=== PATIENT | female | born 2000 ===

== ENCOUNTER 2021-02-28 19:59 | Inpatient (IN) ==
[2021-02-28] MEDS ORDERED: LACTATED RINGERS 500 ML IV PRN (20:51)
[2021-02-28] MEDS ORDERED: ONDANSETRON 4 MG/2 ML VIAL IV PRN (20:51)
[2021-02-28] MEDS ORDERED: BUTORPHANOL 2 MG/ML VIAL IV PRN (21:03)
[2021-02-28 21:20] LABS: Basophils % 0.2 % (0.0-0.8); Eosinophils % 0.4 % (0.00-10.9); Hematocrit 35.2 VOL% (35.7-47.0); Hemoglobin 12.1 GM/DL (12.0-16.0); Immature Granulocytes % 1.3 %; Immature Granulocytes Absolute 0.13 #; Lymphocytes # 1.4 10*3/uL (1.4-4.0); Lymphocytes % 13.9 % (21.3-54.2); Mean Corpuscular HGB Conc 34.4 GM/DL (32-36); Mean Corpuscular Volume 86.9 FL (87-102); Mean Platelet Volume 13.5 FL (9.6-12.0); Monocytes % 6.5 % (1.7-12.7); Neutrophils % 77.7 % (38.7-73.9); Platelet Count 161 T/CUMM (130-400); Red Blood Count 4.05 MC/CUMM (3.8-5.5); Red Cell Distribution Width 14.3 % (9.3-17.3); White Blood Count 9.9 T/CUMM (4-12)
[2021-02-28] MEDS ORDERED: FAMOTIDINE 20 MG/2 ML VIAL IV ONE (21:22)
[2021-02-28] MEDS ORDERED: ePHEDrine 50 MG/ML VIAL IV PRN (21:22)
[2021-02-28] MEDS ORDERED: CITRIC ACID/SODIUM CITRATE 30 ML UDCUP PO ONE (21:22)
[2021-02-28] MEDS ORDERED: hydrOXYzine HCL 25 MG/1 ML VIAL IM PRN (21:22)
[2021-02-28] MEDS ORDERED: NALOXONE 0.4 MG/ML VIAL IV PRN (21:22)
[2021-02-28] MEDS ORDERED: PROMETHAZINE 25 MG/1 ML VIAL IM PRN (21:22)
[2021-02-28] MEDS ORDERED: LACTATED RINGERS 1,000 ML IV ONE (21:22)
[2021-02-28] MEDS ORDERED: diphenhydrAMINE 50 MG/1 ML VIAL IV PRN (21:22)
[2021-02-28 21:34] LABS: Albumin 2.5 G/DL (3.4-5.0); Bilirubin,Total 0.5 MG/DL (0.20-1.00); Calcium 8.7 MG/DL (8.5-10.1); Osmolality,Calculated 279.1 MOS/KG (273-304); Potassium 3.3 MMOL/L (3.5-5.1); Total Protein 6.3 G/DL (6.4-8.2); Uric Acid 4.1 MG/DL (2.6-6.0)
[2021-02-28] MEDS ORDERED: AMPICILLIN INJ 2,000 MG in SODIUM CHLORIDE 0.9% 100 ML IV ONE (21:45)
[2021-02-28 22:22] LABS: INR 0.9; Partial Thromboplastin Time 28.8 SECS (23.9-33.8)
[2021-02-28] MEDS: LACTATED RINGERS 1,000 ML IV PRN (22:47)
[2021-02-28] MEDS: fentaNYL 2 MCG/ROPIV 0.2% EPID 100 ML EPIDURAL SCH (23:22)
[2021-03-01 01:04] LABS: Bilirubin,Urine Negative (Negative); Blood, Urine Negative (Negative); Glucose,Urine (UA) Negative (Negative); Ketones,Urine Negative (Negative); Mucus,Urine Occasional /LPF (Occasional); Nitrite,Urine Negative (Negative); Protein,Urine Negative; RBC,Urine 1 /HPF (0-4); Squamous Epithelial Cell,Urine Occasional /HPF (0-10); Urine Appearance CLEAR (Clear); Urine Color Straw (Yellow); Urine Specific Gravity 1.006 (1.001-1.035); Urine Urobilinogen < 2.0 EU/DL (0.2-1.0)
[2021-03-01] MEDS: AMPICILLIN INJ 1,000 MG in SODIUM CHLORIDE 0.9% 100 ML IV SCH ×3 (01:56→10:47)
[2021-03-01] MEDS: fentaNYL 2 MCG/ROPIV 0.2% EPID 100 ML EPIDURAL SCH (07:26)
[2021-03-01] MEDS: LACTATED RINGERS 1,000 ML IV PRN (07:29)
[2021-03-01] MEDS ORDERED: miSOPROStoL 200 MCG TABLET ONE (08:26)
[2021-03-01] MEDS ORDERED: TRANEXAMIC ACID 1,000 MG/10 ML VIAL ONE (08:26)
[2021-03-01] MEDS ORDERED: OXYTOCIN/LR 20 UNIT/1,000 ML BAG IV ONE ×2 (08:26→14:34)
[2021-03-01] MEDS ORDERED: METHYLERGONOVINE 0.2 MG/1 ML AMP ONE (08:27)
[2021-03-01] MEDS ORDERED: CARBOPROST TROMETHAMINE 250 MCG/ML AMP IM ONE (08:27)
[2021-03-01] MEDS ORDERED: SODIUM CHLORIDE 0.9% 0 ML IV ONE (08:28)
[2021-03-01] MEDS: OXYTOCIN/LR 20 UNIT/1,000 ML BAG IV SCH ×2 (09:15→13:05)
[2021-03-01 12:07] LABS: Cord Venous Blood HCO3 20.2 MMOL/L; Cord Venous Blood PCO2 38.4 MMHG; Cord Venous Blood PO2 41.1
[2021-03-01] MEDS ORDERED: HYDROCORTISONE 2.5% RECTAL CREAM 30 GM TUBE TOP PRN (14:34)
[2021-03-01] MEDS ORDERED: oxyCODONE/ACETAMINOPHEN 5-325 MG TABLET PO PRN (14:34)
[2021-03-01] MEDS ORDERED: ACETAMINOPHEN 325 MG TABLET PO PRN (14:34)
[2021-03-01] MEDS ORDERED: WITCH HAZEL PADS 100/JAR TOP PRN (14:34)
[2021-03-01] MEDS ORDERED: BISACODYL 10 MG SUPP RECTAL PRN (14:34)
[2021-03-01] MEDS ORDERED: LANOLIN 50% CREAM 0.3 OZ TUBE TOP PRN (14:34)
[2021-03-01] MEDS ORDERED: BENZOCAINE 20%/MENTHOL 0.5% SPRAY 56 GM CAN TOP PRN (14:34)
[2021-03-01] MEDS ORDERED: DIPH/TET/ACEL PERT BOOSTER VACCINE 0.5 ML VIAL IM ONE (14:34)
[2021-03-01] MEDS ORDERED: RHO(D) IMMUNE GLOBULIN 300 MCG SYRINGE IM ONE (14:34)
[2021-03-01] MEDS ORDERED: MEASLES/MUMPS/RUBELLA VACCINE 0.5 ML VIAL SUBCUT ONE (14:34)
[2021-03-01] MEDS: oxyCODONE/ACETAMINOPHEN 5-325 MG TABLET PO PRN ×2 (14:43→21:34)
[2021-03-01] MEDS: DOCUSATE SODIUM 100 MG CAPSULE PO SCH (21:35)
[2021-03-01] MEDS: IBUPROFEN 800 MG TABLET PO PRN (23:35)
[2021-03-02] MEDS ORDERED: POTASSIUM CHLORIDE 20 MEQ TABLET PO ONE (00:20)
[2021-03-02 05:30] LABS: Basophils % 0.2 % (0.0-0.8); Eosinophils # 0.1 10*3/uL (0.0-0.87); Eosinophils % 0.8 % (0.00-10.9); Hematocrit 28.5 VOL% (35.7-47.0); Immature Granulocytes % 0.8 %; Immature Granulocytes Absolute 0.11 #; Lymphocytes # 1.7 10*3/uL (1.4-4.0); Lymphocytes % 12.8 % (21.3-54.2); Mean Corpuscular HGB Conc 33.3 GM/DL (32-36); Mean Corpuscular Volume 89.3 FL (87-102); Mean Platelet Volume 12.9 FL (9.6-12.0); Monocytes % 5.2 % (1.7-12.7); Neutrophils % 80.2 % (38.7-73.9); Red Cell Distribution Width 14.4 % (9.3-17.3)
[2021-03-02 05:31] LABS: Hemoglobin 9.5 GM/DL (12.0-16.0); Red Blood Count 3.19 MC/CUMM (3.8-5.5); White Blood Count 13.3 T/CUMM (4-12)
[2021-03-02 05:32] LABS: Platelet Count 123 T/CUMM (130-400)
[2021-03-02 05:55] LABS: Microcytosis 1+; Platelet Estimate Adequate
[2021-03-02] MEDS: DOCUSATE SODIUM 100 MG CAPSULE PO SCH ×2 (09:24→21:25)
[2021-03-02] MEDS: FERROUS SULFATE 325 MG TABLET PO SCH ×2 (09:24→21:25)
[2021-03-02] MEDS: oxyCODONE/ACETAMINOPHEN 5-325 MG TABLET PO PRN (12:03)
[2021-03-02] MEDS: POTASSIUM CHLORIDE 20 MEQ TABLET PO PRN ×3 (17:33→19:45)
[2021-03-03] MEDS: oxyCODONE/ACETAMINOPHEN 5-325 MG TABLET PO PRN (02:10)
[2021-03-03 08:02] VITALS: BP 144/81
[2021-03-03] MEDS: FERROUS SULFATE 325 MG TABLET PO SCH (09:14)
[2021-03-03] MEDS: DOCUSATE SODIUM 100 MG CAPSULE PO SCH (09:14)
[2021-03-03] MEDS: IBUPROFEN 800 MG TABLET PO PRN (09:16)
== END 2021-03-03 13:20 | disposition home or self-care (01) | DRG 560 ==
LOC: N.LDOUT 19:59 → N.LD 20:01 → N.OB 03-01 14:25
PROVIDERS: ADMIT Obstetrics & Gynecology; ATTEND Obstetrics & Gynecology

== ENCOUNTER 2022-06-22 18:12 | Inpatient (IN) ==
[2022-06-22] MEDS ORDERED: OXYTOCIN/LR 20 UNIT/1,000 ML BAG IV ONE (19:15)
[2022-06-22] MEDS ORDERED: METHYLERGONOVINE 0.2 MG/1 ML AMP IM PRN (19:15)
[2022-06-22] MEDS ORDERED: miSOPROStoL 200 MCG TABLET RECTAL PRN (19:15)
[2022-06-22] MEDS ORDERED: TRANEXAMIC ACID 1,000 MG in SODIUM CHLORIDE 0.9% 100 ML IV PRN (19:15)
[2022-06-22] MEDS ORDERED: CARBOPROST TROMETHAMINE 250 MCG/ML AMP IM PRN (19:15)
[2022-06-22] MEDS ORDERED: ACETAMINOPHEN 325 MG TABLET PO PRN (19:26)
[2022-06-22] MEDS ORDERED: miSOPROStoL 200 MCG TABLET VAG PRN (19:26)
[2022-06-22] MEDS ORDERED: MEPERIDINE 50 MG/1 ML VIAL IV PRN (19:26)
[2022-06-22] MEDS ORDERED: LACTATED RINGERS 1,000 ML IV SCH ×3 (19:30→22:00)
[2022-06-22 19:49] LABS: Basophils % 0.3 % (0.0-0.8); Eosinophils # 0.1 10*3/uL (0.0-0.87); Eosinophils % 0.7 % (0.00-10.9); Hematocrit 36.2 VOL% (35.7-47.0); Hemoglobin 12.7 GM/DL (12.0-16.0); Immature Granulocytes Absolute 0.11 #; Lymphocytes # 2.1 10*3/uL (1.4-4.0); Lymphocytes % 19.4 % (21.3-54.2); Mean Corpuscular HGB Conc 35.1 GM/DL (32-36); Mean Corpuscular Volume 88.5 FL (87-102); Mean Platelet Volume 12.9 FL (9.6-12.0); Monocytes # 0.7 10*3/uL (0.11-0.8); Monocytes % 6.2 % (1.7-12.7); Neutrophils % 72.4 % (38.7-73.9); Platelet Count 157 T/CUMM (130-400); Red Blood Count 4.09 MC/CUMM (3.8-5.5); Red Cell Distribution Width 13.2 % (9.3-17.3); White Blood Count 10.7 T/CUMM (4-12)
[2022-06-22] MEDS: ONDANSETRON 4 MG/2 ML VIAL IV PRN (19:59)
[2022-06-22] MEDS ORDERED: MEPERIDINE 25 MG/1 ML VIAL IV PRN (20:00)
[2022-06-22] MEDS ORDERED: BUTORPHANOL 1 MG/ML VIAL IM PRN (20:18)
[2022-06-22] MEDS ORDERED: CITRIC ACID/SODIUM CITRATE 30 ML UDCUP PO ONE (21:58)
[2022-06-22] MEDS ORDERED: ePHEDrine 50 MG/ML VIAL IV PRN (21:58)
[2022-06-22] MEDS ORDERED: PROMETHAZINE 25 MG/1 ML VIAL IM ONE (21:58)
[2022-06-22] MEDS ORDERED: LACTATED RINGERS 1,000 ML IV ONE (21:58)
[2022-06-22] MEDS ORDERED: hydrOXYzine HCL 25 MG/1 ML VIAL IM PRN (21:58)
[2022-06-22] MEDS ORDERED: NALOXONE 0.4 MG/ML VIAL IV PRN (21:58)
[2022-06-22] MEDS ORDERED: FAMOTIDINE 20 MG/2 ML VIAL IV ONE ×2 (21:58→22:03)
[2022-06-22] MEDS ORDERED: diphenhydrAMINE 50 MG/1 ML VIAL IV PRN ×2 (21:58)
[2022-06-22] MEDS ORDERED: ONDANSETRON 4 MG/2 ML VIAL IV ONE (21:58)
[2022-06-22] MEDS ORDERED: fentaNYL 2 MCG/ROPIV 0.2% EPID 100 ML EPIDURAL SCH (22:00)
[2022-06-22] MEDS ORDERED: CITRIC ACID/SODIUM CITRATE 30 ML UDCUP ONE (22:01)
[2022-06-22] MEDS ORDERED: fentaNYL 2 MCG/ROPIV 0.2% EPID 100 ML EPIDURAL ONE (22:02)
[2022-06-22] MEDS ORDERED: ePHEDrine 50 MG/ML VIAL ONE (22:02)
[2022-06-22 23:27] LABS: Bacteria,Urine Occasional /HPF (Few); Bilirubin,Urine Negative (Negative); Blood, Urine Negative (Negative); Glucose,Urine (UA) Negative (Negative); Ketones,Urine Negative (Negative); Mucus,Urine Occasional /LPF (Occasional); Nitrite,Urine Negative (Negative); Protein,Urine Negative (Negative); Squamous Epithelial Cell,Urine Occasional /HPF (0-10); Urine Appearance Clear (Clear); Urine Color Yellow (Yellow); Urine Specific Gravity 1.015 (1.001-1.035)
[2022-06-22] MEDS ORDERED: OXYTOCIN/LR 20 UNIT/1,000 ML BAG IV SCH (23:30)
[2022-06-23 01:14] LABS: Cord Arterial Blood HCO3 18.3 MMOL/L
[2022-06-23 01:16] LABS: Cord Venous Blood HCO3 21.2 MMOL/L; Cord Venous Blood PCO2 46.2 MMHG; Cord Venous Blood PO2 34.1
[2022-06-23] MEDS: ONDANSETRON 4 MG/2 ML VIAL IV PRN (01:45)
[2022-06-23] MEDS ORDERED: oxyCODONE/ACETAMINOPHEN 5-325 MG TABLET PO PRN (04:09)
[2022-06-23] MEDS ORDERED: WITCH HAZEL PADS 100/JAR TOP PRN (04:09)
[2022-06-23] MEDS ORDERED: MEASLES/MUMPS/RUBELLA VACCINE 0.5 ML VIAL SUBCUT ONE (04:09)
[2022-06-23] MEDS ORDERED: HYDROCORTISONE 2.5% RECTAL CREAM 30 GM TUBE TOP PRN (04:09)
[2022-06-23] MEDS ORDERED: BISACODYL 10 MG SUPP RECTAL PRN (04:09)
[2022-06-23] MEDS ORDERED: BENZOCAINE 20%/MENTHOL 0.5% SPRAY 56 GM CAN TOP PRN (04:09)
[2022-06-23] MEDS ORDERED: RHO(D) IMMUNE GLOBULIN 300 MCG SYRINGE IM ONE (04:09)
[2022-06-23] MEDS ORDERED: LANOLIN 50% CREAM 0.3 OZ TUBE TOP PRN (04:09)
[2022-06-23] MEDS ORDERED: DIPH/TET/ACEL PERT BOOSTER VACCINE 0.5 ML VIAL IM ONE (04:09)
[2022-06-23] MEDS ORDERED: OXYTOCIN/LR 20 UNIT/1,000 ML BAG IV ONE (04:09)
[2022-06-23] MEDS: oxyCODONE/ACETAMINOPHEN 5-325 MG TABLET PO PRN ×2 (07:04→17:32)
[2022-06-23] MEDS: DOCUSATE SODIUM 100 MG CAPSULE PO SCH ×2 (08:39→21:00)
[2022-06-23] MEDS: FERROUS SULFATE 325 MG TABLET PO SCH (08:40)
[2022-06-23] MEDS: MULTIVITAMIN (PRENATAL) TABLET PO SCH (08:40)
[2022-06-23] MEDS: IBUPROFEN 800 MG TABLET PO PRN ×2 (13:20→20:30)
[2022-06-24] MEDS: oxyCODONE/ACETAMINOPHEN 5-325 MG TABLET PO PRN (04:27)
[2022-06-24 06:51] LABS: Basophils % 0.3 % (0.0-0.8); Eosinophils # 0.2 10*3/uL (0.0-0.87); Eosinophils % 2.1 % (0.00-10.9); Hematocrit 31.5 VOL% (35.7-47.0); Hemoglobin 10.9 GM/DL (12.0-16.0); Immature Granulocytes % 1.3 %; Immature Granulocytes Absolute 0.12 #; Lymphocytes # 2.3 10*3/uL (1.4-4.0); Lymphocytes % 24.3 % (21.3-54.2); Mean Corpuscular HGB Conc 34.6 GM/DL (32-36); Mean Corpuscular Volume 90.5 FL (87-102); Mean Platelet Volume 13.2 FL (9.6-12.0); Monocytes # 0.5 10*3/uL (0.11-0.8); Monocytes % 5.1 % (1.7-12.7); Neutrophils % 66.9 % (38.7-73.9); Platelet Count 131 T/CUMM (130-400); Red Blood Count 3.48 MC/CUMM (3.8-5.5); Red Cell Distribution Width 13.3 % (9.3-17.3); White Blood Count 9.3 T/CUMM (4-12)
[2022-06-24] MEDS: FERROUS SULFATE 325 MG TABLET PO SCH (08:40)
[2022-06-24] MEDS: DOCUSATE SODIUM 100 MG CAPSULE PO SCH (08:40)
[2022-06-24] MEDS: MULTIVITAMIN (PRENATAL) TABLET PO SCH (08:40)
[2022-06-24 12:42] VITALS: BP 132/59
== END 2022-06-24 13:50 | disposition home or self-care (01) | DRG 560 ==
LOC: N.LDOUT 18:12 → N.LD 18:14 → N.OB 06-23 03:35
PROVIDERS: ADMIT Obstetrics & Gynecology; ATTEND Obstetrics & Gynecology